=== PATIENT | female | born 2000 | race African-American/Black ===

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

== ENCOUNTER 2020-01-01 19:55 | Emergency (ER) | payer OTHER, MEDICAID ==
[~2020-01-01] VITALS: Ht 172.7 cm; Wt 123.6 kg
[2020-01-01 20:28] LABS: URINE BLOOD NEGATIVE (Negative); URINE CLARITY CLEAR; URINE COLOR YELLOW; URINE GLUCOSE-RANDOM NEGATIVE (Negative); URINE KETONES NEGATIVE (Negative); URINE LEUKOCYTES-REFLEX NEGATIVE (Negative); URINE NITRITE-REFLEX NEGATIVE (Negative); URINE PROTEIN TRACE (Negative); URINE SPECIFIC GRAVITY >= 1.030 (1.005-1.030); URINE UROBILINOGEN 0.2 E.U./dl (0.2-1.0)
[2020-01-01 20:31] LABS: ICTOTEST (BILI CONFIRMATORY) Negative (Negative); URINE BILIRUBIN 1+ (Negative)
[2020-01-01 20:36] LABS: HEMATOCRIT 38.6 % (37.0-47.0); HEMOGLOBIN 12.6 gm/dL (12.0-15.0); MCH 26.7 pg (26.0-34.0); MCHC 32.7 g/dL (28.0-37.0); MCV 81.5 fL (80.0-100.0); MPV 8.7 fl. (7.2-11.1); RBC 4.73 mil/uL (4.20-5.00); WBC 4.7 thou/uL (4.0-11.0)
[2020-01-01 20:37] LABS: AMP/METHAMP Negative (Negative); BARBITURATES Negative (Negative); BENZODIAZEPINES Negative (Negative); COCAINE Negative (Negative); METHADONE Negative (Negative); OPIATES Negative (Negative); PCP Negative (Negative); THC Negative (Negative)
[2020-01-01 20:44] LABS: CALCIUM 8.9 mg/dL (8.5-10.1); CREATININE 1.2 mg/dL (0.6-1.3); POTASSIUM 3.7 mmol/L (3.5-5.1)
[2020-01-01 20:49] LABS: ALBUMIN 3.6 g/dL (3.4-5.0); TOTAL BILIRUBIN 0.2 mg/dL (<0.1-1.0); TOTAL PROTEIN 7.6 g/dL (6.4-8.2)
[2020-01-01 22:05] LABS: ACETAMINOPHEN < 2 ug/mL (10-30); ALCOHOL < 10 mg/dL (<10); SALICYLATE < 2.8 mg/dL (2.8-20.0)
[2020-01-01 23:03] VITALS: BP 132/52
== END 2020-01-01 23:05 | disposition home or self-care (01) ==
LOC: M.ERS 19:55
PROVIDERS: Personal Emergency Response Attendant
DX: F91.9 Conduct disorder, unspecified (principal)

== ENCOUNTER 2020-08-10 14:40 | Emergency (ER) | payer MEDICARE, MEDICAID ==
[~2020-08-10] VITALS: Ht 167.6 cm; Wt 127.0 kg
[2020-08-10 15:38] VITALS: BP 130/76
== END 2020-08-10 15:38 | disposition home or self-care (01) ==
LOC: M.ERS 14:40
DX: F91.9 Conduct disorder, unspecified (principal)

== ENCOUNTER 2020-09-12 22:07 | Emergency (ER) | payer MEDICARE, MEDICAID ==
[~2020-09-12] VITALS: Ht 172.7 cm; Wt 104.3 kg
[2020-09-12 23:48] VITALS: BP 135/82
== END 2020-09-12 23:49 | disposition home or self-care (01) ==
LOC: M.ERS 22:07
DX: F93.9 Childhood emotional disorder, unspecified (principal)